=== PATIENT | male | born 2000 | race Caucasian/White ===

== ENCOUNTER 2020-04-17 14:26 | Emergency (ER) | payer OTHER ==
[~2020-04-17] VITALS: Ht 175.3 cm; Wt 111.1 kg
[2020-04-17 14:28] VITALS: BP 111/48
--- NOTE | 2020-04-17 14:37 | NUR ---
Patient ambulated to bed 7.
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
[2020-04-17] MEDS ORDERED: IBUPROFEN 600 MG TAB PO ONE (14:55)
[2020-04-17 15:17] VITALS: BP 111/48
--- NOTE | 2020-04-17 15:17 | NUR ---
Patient discharged with v/s stable. Written and verbal after care instructions given and explained. Patient alert, oriented and verbalized understanding of instructions. Ambulatory with steady gait. All questions addressed prior to discharge. ID band removed. Patient advised to follow up with PMD. Rx of ACETAMINOPHEN,IBUPROFEN given. Patient educated on indication of medication including possible reaction and side effects. Opportunity to ask questions provided and answered.
== END 2020-04-17 15:17 | disposition home or self-care (01) ==
LOC: MED 14:26
DX: S66.811A Strain of other specified muscles, fascia and tendons at wrist and hand level, right hand, initial encounter (principal); V43.32XA Unspecified car occupant injured in collision with other type car in nontraffic accident, initial encounter; Y93.89 Activity, other specified; Y92.89 Other specified places as the place of occurrence of the external cause; Y99.8 Other external cause status
CPT/HCPCS: 99282